=== PATIENT | female | born 1930 | race Two or more races ===

== ENCOUNTER 2017-06-30 13:11 | Emergency (ER) | payer OTHER, MEDICAID ==
[2017-06-30 13:26] VITALS: BP 171/58
== END 2017-06-30 14:47 | disposition home or self-care (01) ==
LOC: ER 13:11
DX: S70.01XA Contusion of right hip, initial encounter (principal); I10 Essential (primary) hypertension; W01.0XXA Fall on same level from slipping, tripping and stumbling without subsequent striking against object, initial encounter; Y93.89 Activity, other specified; Y92.090 Kitchen in other non-institutional residence as the place of occurrence of the external cause; Y99.8 Other external cause status
CPT/HCPCS: 73502